=== PATIENT | female | born 1965 | race Caucasian/White ===

== ENCOUNTER 2018-07-14 10:22 | Emergency (ER) | payer OTHER, SELFPAY ==
[2018-07-14 10:29] VITALS: BP 146/94; PULSE 80; RESP 18; TEMP 36.6; O2SAT 95
[2018-07-14 10:36] LABS: Bilirubin Negative (Negative); Blood Moderate (Negative); Clarity Clear; Glucose Negative (Negative); Ketones Trace mg/dL (Negative); Leukocyte Esterase Small (Negative); Nitrite Negative (Negative); Urobilinogen 0.2 EU/dL (Up TO 0.2)
--- NOTE | 2018-07-14 10:40 | ED.GENADUL_ITS ---
Disposition Clinical Impression: Urinary tract infection Disposition: HOME Condition: Stable Instructions: Urinary Tract Infection in Women (ED) Additional Instructions: Return immediately if you begin having high fevers, significant nausea vomiting , or worsening of your symptoms. Otherwise take antibiotic until fully completed. If your symptoms are not resolving by the time antibiotics are complete you should follow-up with your primary care provider for reassessment and further testing. Prescriptions: Nitrofurantoin Macrocrystal [Macrodantin] 100 mg PO BID #9 cap Phenazopyridine [Pyridium] 100 mg PO Q8H PRN #5 tab PRN Reason: Pain Referrals: Jasmina Mccallum NP [Primary Care Provider] - 5 days (If not improving in your symptoms please follow-up with your primary care provider for reassessment.) Medical Decision Making - Lab Data Results reviewed for labs ordered during visit: Yes - Medical Decision Making Patient presenting to the emergency department for burning urination pressure and discomfort along with some mild diarrhea that all started this morning. She does state history of previous urinary tract infections with similar sensations and previous records were reviewed that shows typical contaminant of E. coli and sensitivities were reviewed. Clinically patient has a urinary tract infection but urinalysis was performed to confirm clinical suspicion. Doubt pyelonephritis at this time. Pending results patient given Motrin and Pyridium for discomfort. After review of urinalysis that confirms suspicion of urinary tract infection. With review of previous sensitivities patient is sensitive to Macrobid so she was placed upon Macrobid twice daily for 5 days. Patient also prescribed Pyridium to be used over the next couple days as needed for discomfort otherwise patient to follow-up with primary care provider if not improving by the end of the course of antibiotics. Patient encouraged to return for any new or significant worsening of symptoms which were thoroughly discussed. After discussion of diagnosis and plan of care with patient patient agreed and stated no further needs, questions, or concerns at this time. History of Present Illness - General Chief complaint: Urinary Stated complaint: UTI Time Seen by Provider: 07/14/18 10:26 Source: patient, RN notes reviewed, old records reviewed Mode of arrival: ambulatory Limitations: no limitations - History of Present Illness Initial comments: Patient reports this morning she began having some mild diarrhea along with some burning urination and significant bladder pressure. She does state that she started sertraline a week ago due to a recent in the family but is unsure if this is contributing to anything. Patient denies any fever chills, nausea vomiting, flank pain. Onset/Timin -: hour(s) Location: genitals Radiation: non-radiation Severity scale (1-10): 5 Quality: burning Consistency: constant Improves with: none Worsens with: none Associated Symptoms: denies other symptoms Treatments Prior to Arrival: none - Related Data Calcium Polycarbophil [Fibercon] 625 mg PO DAILY 08/09/14 Eye Restore PO DAILY 08/31/15 Pravastatin Sodium 40 mg PO DAILY #90 tab-cap 10/04/17 Lorazepam 1 mg PO HS PRN #20 tab-cap 07/06/18 Sertraline HCl 50 mg PO DAILY #45 tab-cap 07/06/18 Nitrofurantoin Macrocrystal [Macrodantin] 100 mg PO BID #9 cap 07/14/18 Phenazopyridine [Pyridium] 100 mg PO Q8H PRN #5 tab 07/14/18 Allergies Allergy/AdvReac Type Severity Reaction Status Date / Time No Known Allergies Allergy Unverified 07/14/18 10:38 Review of Systems Constitutional: denies: chills, fever, malaise Respiratory: no symptoms reported Cardiovascular: denies: chest pain Gastrointestinal: diarrhea. denies: abdominal pain, nausea, vomiting Genitourinary: urgency, dysuria, frequency. 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 Absent: respiratory distress, wheezes, rales, rhonchi, stridor - Cardiovascular Cardiovascular Exam: Present: regular rate, normal rhythm, normal heart sounds. Absent: tachycardia, systolic murmur, diastolic murmur - Back Exam Back exam: Absent: CVA tenderness (R), CVA tenderness (L) - Neurological Exam Neurological exam: Present: alert, oriented X3. Absent: altered - Skin Skin exam: Present: warm, dry, normal color. Absent: cyanosis, diaphoretic, pallor, mottled Course Vital Signs - 24 hr 07/14/18 10:29 Temperature 36.6 C Pulse 80 Respiratory 18 Rate Blood Pressure 146/94 Pulse Oximetry 95
[2018-07-14] MEDS: Ibuprofen 600 MG TAB PO (10:42)
[2018-07-14] MEDS: Phenazopyridine 200 MG TAB PO (10:43)
[2018-07-14 10:50] LABS: Bacteria Few HPF (Negative); C & S Indicated? Yes; Casts Negative LPF (Negative); Crystals Negative HPF (Negative); Epithelial Cells Few HPF (Negative); Mucus Negative (Negative); Other Cells Few Renal (Negative); WBC 20-50 HPF (0-5)
[2018-07-14] MEDS: MacroBID 100 MG CAP PO (11:08)
== END 2018-07-14 11:12 | disposition home or self-care (01) ==
PROVIDERS: Emergency Provider Emergency Medicine; PCP Nurse Practitioner Family
DX: N39.0 Urinary tract infection, site not specified (principal); B96.89 Other specified bacterial agents as the cause of diseases classified elsewhere
CPT/HCPCS: 99283; 81003; 81015; 87086

== ENCOUNTER 2018-10-05 08:11 | Outpatient (CLI) | payer OTHER, SELFPAY ==
[2018-10-05 09:33] LABS: Anion Gap 8.2 mmol/L (3-11); BUN 9 mg/dL (7-18); CO2 29.8 mmol/L (21.0-32.0); CREATININE 0.69 mg/dL (0.55-1.02); Calcium 9.2 mg/dL (8.5-10.1); Chloride 103 mmol/L (98-107); Cholesterol 242 mg/dL (50-200); Glucose 99 mg/dL (70-100); HDL Cholesterol 81 mg/dL (40-60); LDL CHOLESTEROL 147 mg/dL (<100); Potassium 4.1 mmol/L (3.5-5.1); Sodium 141 mmol/L (136-145); Triglyceride 98 mg/dL (30-150)
== END 2018-10-05 08:31 ==
PROVIDERS: PCP Nurse Practitioner Family; Visit Provider Nurse Practitioner Family
DX: E78.5 Hyperlipidemia, unspecified (principal); Z13.1 Encounter for screening for diabetes mellitus
CPT/HCPCS: 36415; 80048; 80061; 83721

== ENCOUNTER 2019-12-11 12:25 | Outpatient (REF) | payer OTHER, SELFPAY ==
--- NOTE | 2019-12-11 12:00 | PAPFT_PTH ---
PATIENT: Iram Guerrero LOC: [facility] U#:[id number] AGE/SX: 54/F ROOM: RE12/11/[address]: Eve Méndez MD : 1965 BED: DIS: 12/11/2019 SPEC #: [id number] RECD: 12/12/19 12:56 STATUS: ARMINDA RELilian #: [id number] SIMÓN: 12/11/19 12:[address]: Eve Méndez DEPT: [facility] Cytology RECD BY: Valorie Chung ENTERED: 12/12/19 12:56 SP TYPE: PAPFT OTHR DR: Jasmina Mccallum APRN Tissues: 1 - CX/ENDOCX FOR PAP SMEARS Procedures: PAP THIN PREP/UVM Screening HPV DNA PROBE Comments: [id number]
== END 2019-12-11 12:45 ==
LOC: LBN 12:25
PROVIDERS: PCP Nurse Practitioner Family; Visit Provider Internal Medicine
DX: Z12.4 Encounter for screening for malignant neoplasm of cervix (principal); Z11.51 Encounter for screening for human papillomavirus (HPV)
CPT/HCPCS: 88142; 87624

== ENCOUNTER 2020-02-05 11:54 | Outpatient (CLI) | payer OTHER, SELFPAY ==
[2020-02-05 13:19] LABS: Calculated LDL 134 mg/dL (<100); Cholesterol 243 mg/dL (<200); HDL Cholesterol 83 mg/dL (40-60); Triglyceride 130 mg/dL (<150)
== END 2020-02-05 12:14 ==
PROVIDERS: PCP Internal Medicine; Visit Provider Internal Medicine
DX: E78.00 Pure hypercholesterolemia, unspecified (principal)
CPT/HCPCS: 36415; 80061

== ENCOUNTER 2020-08-07 04:17 | Outpatient (CLI) | payer OTHER, SELFPAY ==
--- NOTE | 2020-08-07 07:15 | DI.MAMMO_ITS ---
EXAM: MAMMO SCREENING CLINICAL HISTORY: screening,Z12.39 TECHNIQUE: Mammograms were interpreted according to the usual protocol including computer analysis w [employer] CAD system, tomosynthesis and C-view imaging. COMPARISON: 2010 through 2015 FINDINGS: The breasts are composed of scattered fibroglandular densities, Breast Density category B. No suspicious masses or suspicious microcalcifications are seen. No skin thickening or abnormal axillary lymph nodes are seen. There has been no significant change from prior exams. IMPRESSION: BI-RADS Category 1, Negative mammogram Yearly screening mammography is recommended. Breast Density - Category B, scattered fibroglandular densities. A negative radiographic report should not delay biopsy if a dominant or clinically suspicious mass is present. Up to ten percent of cancers are not identified on mammography. A negative report may reinforce clinical impression. Adenosis and dense breasts may obscure an underlying neoplasm. False positive reports average 6 to 10%. Patient will receive a letter notifying them of these results.
== END 2020-08-07 04:37 ==
PROVIDERS: PCP Internal Medicine; Visit Provider Internal Medicine
DX: Z12.31 Encounter for screening mammogram for malignant neoplasm of breast (principal); R92.2 Inconclusive mammogram
CPT/HCPCS: 77063; 77067

== ENCOUNTER 2020-12-08 22:56 | Outpatient (REF) | payer OTHER, SELFPAY | END 2020-12-08 23:16 | LOC: LBN 22:56 | PROVIDERS: PCP Internal Medicine; Visit Provider Physician Assistant | DX: N39.0 Urinary tract infection, site not specified (principal) | CPT/HCPCS: 87086 ==

== ENCOUNTER 2021-02-17 04:15 | Outpatient (CLI) | payer OTHER, SELFPAY ==
[2021-02-17 13:14] LABS: Calculated LDL 146 mg/dL (<100); Cholesterol 258 mg/dL (<200); HDL Cholesterol 95 mg/dL (40-60); Triglyceride 86 mg/dL (<150)
== END 2021-02-17 04:16 | disposition home or self-care (01) ==
LOC: LBO 04:15
PROVIDERS: PCP Internal Medicine; Visit Provider Internal Medicine
DX: E78.5 Hyperlipidemia, unspecified (principal)
CPT/HCPCS: 36415; 80061

== ENCOUNTER 2021-03-13 15:55 | Outpatient (REF) | payer OTHER, SELFPAY | END 2021-03-13 15:56 | disposition home or self-care (01) | LOC: LBN 15:55 | PROVIDERS: PCP Internal Medicine; Visit Provider Nurse Practitioner Family | DX: N39.0 Urinary tract infection, site not specified (principal) | CPT/HCPCS: 87077; 87086; 87186 ==

== ENCOUNTER 2021-03-29 08:06 | Emergency (ER) | payer OTHER, SELFPAY ==
[2021-03-29 08:11] VITALS: BP 166/95; PULSE 97; RESP 20; TEMP 37.2; O2SAT 99
[2021-03-29 08:18] LABS: Bilirubin Negative (Negative); Blood Large (Negative); Clarity Sl Cloudy (Clear); Glucose 100 mg/dL (Negative); Ketones Negative (Negative); Leukocyte Esterase Large (Negative); Nitrite Positive (Negative); pH 6.5 (5-8)
[2021-03-29 08:26] LABS: Bacteria Few HPF (Negative); C & S Indicated? Yes; Casts Negative LPF (Negative); Crystals Negative HPF (Negative); Epithelial Cells Few HPF (Negative); Mucus Negative (Negative); RBC 20-50 HPF (0-2); WBC >50 HPF (0-5)
[2021-03-29] MEDS: Cephalexin 500 MG CAP PO (09:06)
--- NOTE | 2021-04-05 07:44 | W.ED.GENAD ---
Discharge Plan Disposition Patient Disposition: HOME Condition: Stable Discharge Details Clinical Impression: Dysuria Primary Care Provider: Eve Méndez ED Provider: Maliha Snell Home Meds and New Rx's Prescriptions: New cephalexin 500 mg capsule 500 mg PO BID Qty: 13 RF: 0 Discontinued phenazopyridine [Pyridium] 100 mg tablet 100 mg PO TID PRN (Reason: pain) Qty: 6 RF: 0 No Action eye restore PO DAILY RF: 0 pravastatin 40 mg tablet 40 mg PO DAILY Qty: 90 RF: 3 sertraline 50 mg tablet 50 mg PO DAILY Qty: 90 RF: 3 trazodone 150 mg tablet 150 mg PO QHS Qty: 90 RF: 2 calcium polycarbophil [FiberCon] 625 MG tablet 625 mg PO DAILY RF: 0 Discharge Instructions Instructions: Cephalexin (By mouth), Phenazopyridine (By mouth), Urinary Tract Infection in Women (ED) Additional Instructions: Please return immediately to the emergency department if you develop any new or worsening symptoms, if your condition does not improve as expected, or if you become otherwise concerned. It is extremely important that you call soon as possible to make an appointment to be seen in follow-up for this visit by your primary care doctor. Referrals: Eve Méndez MD [Primary Care Provider] - Discharge Data Discharge Date/Time-TO BE ENTERED AT DEPARTURE: 03/29/21 09:10 Medical Decision Making Iram Guerrero is a 55-year-old woman with a history of hyperlipidemia who presented to the emergency department with dysuria since yesterday exactly typical of her usual UTIs, last UTI several months ago. On exam patient is very well and nontoxic-appearing. Concern for UTI. Doubt PID, cervicitis. Exam/history not consistent with sepsis, acute emergent intra-abdominal process. Plan for UA. UA consistent with UTI. Plan for antibiotics, Pyridium as patient has only taken 1 dose at this point and reports significant dysuria. I had a lengthy discussion with Patient regarding return to emergency department precautions, home care, and importance of outpatient follow-up. Pt verbalizes understanding of the plan and is amenable. Patient discharged to home with clear plan for outpatient follow-up. All questions were answered. Disposition decision was made weighing the risks and benefits of hospitalization versus outpatient treatment, the risk for further decompensation, and the patient's wishes. Medical Records Medical records reviewed: Yes I reviewed the patient's medical records. Lab Data Lab results reviewed: Yes I reviewed the patient's lab results. Labs: 03/29/21 08:12 Urine - Reflex from Ua Urine Culture - Final Gram Positive Beth,Mixed Laboratory Tests Range/Units 03/29/21 08:12 Urine Color (Yellow) Yellow Urine Clarity (Clear) Sl cloudy Urine pH (5-8) 6.5 Ur Specific [place] (1.005-1.025) 1.010 Urine Protein (Negative) mg/dL 100 H Urine Ketones (Negative) mg/dL Negative Urine Blood (Negative) Large H Urine Nitrite (Negative) Positive H Urine Bilirubin (Negative) Negative Urine Urobilinogen (Up TO 0.2) EU/dL 1.0 H Ur Leukocyte Esterase (Negative) Large H Urine RBC (0-2) HPF 20-50 H Urine WBC (0-5) HPF >50 H Ur Epithelial Cells (Negative) HPF Few Urine Crystals (Negative) HPF Negative Urine Bacteria (Negative) HPF Few Urine Casts (Negative) LPF Negative Urine Mucus (Negative) Negative Ur Culture Indicated? Yes Urine Glucose (Negative) mg/dL 100 HPI General Mode of arrival: ambulatory. Date/Time Provider Initiated Documentation: 03/29/21 09:00. Limitations to Documentation: no limitations. Information obtained by: patient, RN notes reviewed and old records reviewed. HPI Narrative: Iram Guerrero is a 55-year-old woman with history of hyperlipidemia presenting to the emergency department with dysuria. Patient reports that yesterday she developed burning pain with urination and dull suprapubic pain worse with urination. Patient reports that she took 1 dose Azo without much relief. Patient states that she gets urinary tract infection frequently, at least once per year, and states that all of her symptoms are exactly typical of her usual UTIs. Patient reports that she has no other symptoms, no atypical features. She denies new vaginal discharge, fevers, any other pain, vomiting, diarrhea, constipation, numbness, weakness, rash. Patient states that she feels otherwise well and in her usual state of health. Has been eating and drinking as usual. Patient states that she is sexually active with her , they has been monogamous for over 30 years. Related Data Home Medications Medication Instructions Recorded Confirmed calcium polycarbophil [FiberCon] 625 mg PO DAILY 08/09/14 03/29/21 Eye Restore PO DAILY 08/31/15 12/08/20 pravastatin 40 mg tablet 40 mg PO DAILY #90 tab-cap 11/11/20 12/08/20 sertraline 50 mg tablet 50 mg PO DAILY #90 tab-cap 11/11/20 03/29/21 trazodone 150 mg tablet 150 mg PO QHS #90 tab 02/02/21 03/29/21 cephalexin 500 mg PO BID #13 cap 03/29/21 Previous Rx's Medication Instructions Recorded pravastatin 40 mg tablet 40 mg PO DAILY #90 tab-cap 11/11/20 sertraline 50 mg tablet 50 mg PO DAILY #90 tab-cap 11/11/20 trazodone 150 mg tablet 150 mg PO QHS #90 tab 02/02/21 cephalexin 500 mg PO BID #13 cap 03/29/21 Allergies Allergy/AdvReac Type Severity Reaction Status Date / Time No Known Allergies Allergy Verified 03/29/21 08:17 General Stated Complaint: Urinary ALFONZO: 4 Review of Systems Narrative: Constitutional: denies fevers Eyes: denies eye pain ENT: denies ear pain, dental pain, sore throat Cardiovascular: denies chest pain Respiratory: denies SOB, cough GI: denies abdominal pain, vomiting, diarrhea : denies flank pain, vaginal discharge, reports dysuria, suprapubic pain MSK: denies back pain, neck pain, arthralgias, myalgias Skin: denies rash Neuro: denies headaches, numbness, weakness [facility] Medical History Colonic polyp Since age 28 07/2015 colonoscopy w/ polypectomy- sigmoid, rectal, and hepatic flexture Diverticulosis (08/16/15) Dyslipidemia (08/31/15) Endometriosis Grief at loss of child (07/18/18) 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: No Working smoke detector in home: Yes Fire extinguisher in home: Yes Carbon monox detector in home: Yes Do you feel safe at home: Yes Do you feel safe in your relationship?: Yes Exam Narrative Exam Narrative: Constitutional: well and [id number], pleasant, conversing normally HENT: head atraumatic/normocephalic/normal inspection, mucous membranes moist Eyes: conjunctiva normal, sclera normal, pupils 3mm b/l Neck: no stridor, normal ROM, trachea midline Resp: normal work of breathing, speaking in full sentences Cardio: normal rate, normal rhythm GI: abdomen soft, mild suprapubic tenderness to palpation without other abdominal tenderness, no rebound, no guarding non-distended Skin: warm, dry, normal color, no rash Neuro: alert, not altered, grossly non-focal, normal tone Ext: Moving all extremities equally Psych: normal mood, normal affect, normal behavior Course Vital Signs Vital signs: Vital Signs Temperature 37.2 C 03/29/21 08:11 Pulse 97 H 03/29/21 08:11 Respiratory Rate 20 03/29/21 08:11 Blood Pressure 166/95 H 03/29/21 08:11 Pulse Oximetry 99 03/29/21 08:11 Temperature 37.2 C 03/29/21 08:11 Temperature Source Skin 03/29/21 08:11 Pulse 97 H 03/29/21 08:11 Respiratory Rate 20 03/29/21 08:11 Respiratory Effort Non-Labored 03/29/21 08:17 Blood Pressure 166/95 H 03/29/21 08:11 Blood Pressure Position Sitting 03/29/21 08:11 Pulse Oximetry 99 03/29/21 08:11 Oxygen Delivery Method Room Air 03/29/21 08:11 Oxygen Flow Rate 0 03/29/21 08:11 Pain Level 10 03/29/21 08:11 Lab/Test Results Lab/Test Results: 03/29/21 08:12 Urine - Reflex from Ua Urine Culture - Final Gram Positive Beth,Mixed Laboratory Tests Range/Units 03/29/21 08:12 Urine Color (Yellow) Yellow Urine Clarity (Clear) Sl cloudy Urine pH (5-8) 6.5 Ur Specific [place] (1.005-1.025) 1.010 Urine Protein (Negative) mg/dL 100 H Urine Ketones (Negative) mg/dL Negative Urine Blood (Negative) Large H Urine Nitrite (Negative) Positive H Urine Bilirubin (Negative) Negative Urine Urobilinogen (Up TO 0.2) EU/dL 1.0 H Ur Leukocyte Esterase (Negative) Large H Urine RBC (0-2) HPF 20-50 H Urine WBC (0-5) HPF >50 H Ur Epithelial Cells (Negative) HPF Few Urine Crystals (Negative) HPF Negative Urine Bacteria (Negative) HPF Few Urine Casts (Negative) LPF Negative Urine Mucus (Negative) Negative Ur Culture Indicated? Yes Urine Glucose (Negative) mg/dL 100
== END 2021-03-29 09:10 | disposition home or self-care (01) ==
PROVIDERS: Emergency Provider Student in an Organized Health Care Education/Training Program; PCP Internal Medicine
DX: N39.0 Urinary tract infection, site not specified (principal); Z87.440 Personal history of urinary (tract) infections
CPT/HCPCS: 99283; 81003; 81015; 87086

== ENCOUNTER 2021-07-20 17:37 | Outpatient (REF) | payer OTHER, SELFPAY | END 2021-07-20 17:38 | disposition home or self-care (01) | LOC: LBN 17:37 | PROVIDERS: PCP Internal Medicine; Visit Provider Physician Assistant | DX: N39.0 Urinary tract infection, site not specified (principal) | CPT/HCPCS: 87086 ==

== ENCOUNTER 2022-04-06 02:05 | Outpatient (CLI) | payer OTHER, SELFPAY ==
[2022-04-06 15:50] LABS: Calculated LDL 223 mg/dL (<100); Cholesterol 335 mg/dL (<200); HDL Cholesterol 87 mg/dL (40-60); Triglyceride 129 mg/dL (<150)
== END 2022-04-06 02:06 | disposition home or self-care (01) ==
LOC: LBO 02:05
PROVIDERS: PCP Internal Medicine; Visit Provider Internal Medicine
DX: E78.00 Pure hypercholesterolemia, unspecified (principal)
CPT/HCPCS: 36415; 80061

== ENCOUNTER → 2022-06-14 00:46 | Outpatient (CLI) | payer OTHER, SELFPAY ==
--- NOTE | 2022-06-14 07:30 | DI.MAMMO_ITS ---
Exam(s) MAMMO SCREENING EXAM: MAMMO SCREENING CLINICAL HISTORY: screening, Z12.39. TECHNIQUE: Bilateral full field digital CC and MLO mammographic images were obtained with 3D tomosyn thesis and utilizing computer aided detection (CAD). COMPARISON: Prior mammograms were reviewed, the most recent being July 2020. FINDINGS: There has been no significant change in the appearance and distribution of the fibroglandular tissue. There are no new spiculated masses nor malignant appearing microcalcification groups. There is no significant architectural distortion nor skin thickening-retraction. IMPRESSION: No radiographic evidence of malignancy. BI-RADS Category 1 - Negative Breast Density - Category B - Scattered areas of fibroglandular density Breast density Category C or D implies that the patient has dense breast tissue. Dense breast tissue can make it harder to find cancer on a mammogram. Dense breast tissue is also associated with an incr eased risk of breast cancer. This information about the result of the mammogram report was provided to the patient to raise their awareness. Use this report when you speak with the patient about their risks for breast cancer, which includes their family history. At that time, you may recommend additional screening tests (Ultrasoun d or MRI) as these tests may add significant information. A negative radiographic report should not delay biopsy if a dominant or clinically suspicious mass is present. Up to ten percent of cancers are not identified on mammography. A negative report may reinforce clinical impression. Adenosis and dense breasts may obscure an underlying neoplasm. False positive reports average 6 to 10%. Patient will receive a letter notifying them of these results.
== END ==
PROVIDERS: PCP Internal Medicine; Visit Provider Internal Medicine
DX: Z12.31 Encounter for screening mammogram for malignant neoplasm of breast (principal)
CPT/HCPCS: 77063; 77067

== ENCOUNTER 2022-10-13 03:23 | Outpatient (CLI) | payer OTHER, SELFPAY ==
[2022-10-13 13:02] LABS: Calculated LDL 114 mg/dL (<100); Cholesterol 220 mg/dL (<200); HDL Cholesterol 95 mg/dL (40-60); Triglyceride 57 mg/dL (<150)
== END 2022-10-13 03:24 | disposition home or self-care (01) ==
LOC: LBO 03:23
PROVIDERS: PCP Internal Medicine; Visit Provider Internal Medicine
DX: E78.00 Pure hypercholesterolemia, unspecified (principal)
CPT/HCPCS: 36415; 80061

== ENCOUNTER 2024-04-18 13:40 | Outpatient (CLI) | payer OTHER, SELFPAY ==
[2024-04-18 15:18] LABS: ALT 38 U/L (14-59); AST 22 U/L (15-37); Albumin 4.4 g/dL (3.4-5.0); Alkaline Phosphatase 64 U/L (46-116); Anion Gap 7.7 mmol/L (3-11); BUN 8 mg/dL (7-18); Bilirubin, Total 1.2 mg/dL (0.2-1.0); CO2 24.3 mmol/L (21.0-32.0); CREATININE 0.9 mg/dL (0.55-1.02); Calcium 9.1 mg/dL (8.5-10.1); Calculated LDL 86 mg/dL (<100); Chloride 104 mmol/L (98-107); Cholesterol 206 mg/dL (<200); Glucose 95 mg/dL (74-106); HDL Cholesterol 108 mg/dL (40-60); Potassium 3.4 mmol/L (3.5-5.1); Sodium 136 mmol/L (136-145); Total Protein 7.4 g/dL (6.4-8.2); Triglyceride 61 mg/dL (<150)
== END 2024-04-18 13:41 | disposition home or self-care (01) ==
LOC: LBO 13:40
PROVIDERS: PCP Nurse Practitioner Adult Health; Visit Provider Nurse Practitioner Adult Health
DX: E78.5 Hyperlipidemia, unspecified (principal); G47.00 Insomnia, unspecified; Z51.81 Encounter for therapeutic drug level monitoring
CPT/HCPCS: 36415; 80053; 80061

== ENCOUNTER 2024-07-16 01:20 | Outpatient (CLI) | payer OTHER, SELFPAY ==
--- NOTE | 2024-07-16 07:15 | DI.MAMMO_ITS ---
Exam(s) MAMMO SCREENING EXAM: MAMMO SCREENING CLINICAL HISTORY: screening,Z12.39 TECHNIQUE: Mammograms were interpreted according to the usual protocol including computer analysis w [employer] CAD system, tomosynthesis and C-view imaging. COMPARISON: 2015 through 2021 FINDINGS: The breasts are composed of scattered fibroglandular densities, Breast Density category B. No suspicious masses or suspicious microcalcifications are seen. No skin thickening or abnormal axillary lymph nodes are seen. There has been no significant change from prior exams. IMPRESSION: BI-RADS Category 1, Negative mammogram Yearly screening mammography is recommended. Breast Density - Category B, scattered fibroglandular densities. A negative radiographic report should not delay biopsy if a dominant or clinically suspicious mass is present. Up to ten percent of cancers are not identified on mammography. A negative report may reinforce clinical impression. Adenosis and dense breasts may obscure an underlying neoplasm. False positive reports average 6 to 10%. Patient will receive a letter notifying them of these results.
== END 2024-07-16 01:40 ==
LOC: DI 01:20
PROVIDERS: PCP Nurse Practitioner Adult Health; Visit Provider Nurse Practitioner Adult Health
DX: Z12.31 Encounter for screening mammogram for malignant neoplasm of breast (principal)
CPT/HCPCS: 77063; 77067

== ENCOUNTER 2025-02-10 10:09 | Outpatient (REF) | payer OTHER, SELFPAY ==
--- NOTE | 2025-02-10 09:00 | PAPFT_PTH ---
PATIENT: Iram Guerrero LOC: [facility] U#:[id number] AGE/SX: 59/F ROOM: RE02/10/[address]: Tamara Little APRN : 1965 BED: DIS: 02/10/2025 SPEC #: [id number] RECD: 02/10/25 16:49 STATUS: ARMINDA REQ #: [id number] SIMÓN: 02/10/25 09:[address]: Tamara Little DEPT: [facility] Cytology RECD BY: Valorie Chung Tissues: 1 - CX/ENDOCX FOR PAP SMEARS Procedures: PAP THIN PREP/UVM Screening HPV DNA PROBE Comments: [id number] (HPV 16 & 18/45)
== END 2025-02-10 10:10 | disposition home or self-care (01) ==
LOC: LBN 10:09
PROVIDERS: PCP Nurse Practitioner Adult Health; Visit Provider Nurse Practitioner Adult Health
DX: Z11.51 Encounter for screening for human papillomavirus (HPV) (principal); Z01.419 Encounter for gynecological examination (general) (routine) without abnormal findings
CPT/HCPCS: 88142; 87624

== ENCOUNTER 2025-07-21 03:25 | Outpatient (CLI) | payer OTHER, SELFPAY ==
--- NOTE | 2025-07-21 11:50 | DI.MAMMO_ITS ---
Exam(s) MAMMO SCREENING EXAM: MAMMO SCREENING CLINICAL HISTORY: screening Z12.39 TECHNIQUE: Bilateral full field digital CC and MLO mammographic images were obtained with 3D tomosynthesis and utilizing computer aided detection (CAD). COMPARISON: Comparison is made with prior examinations. FINDINGS: Masses/Architectural Distortion: No suspicious masses or areas of architectural distortion are present. Microcalcifications: No suspicious pleomorphic-type are seen. Skin Thickening/Nipple Retraction: None. IMPRESSION: 1. No significant interval change with no specific features of malignancy noted. 2. Unless there is more urgent need, screening mammography is recommended, as per [place] [employer] guidelines. BI-RADS Category 1 - Negative Breast Density - Category B - There are scattered areas of fibroglandular density. Breast density Category C or D implies that the patient has dense breast tissue. Dense breast tissue can make it harder to find cancer on a mammogram. Dense breast tissue is also associated with an increased risk of breast cancer. This information about the result of the mammogram report was provided to the patient to raise their awareness. Use this report when you speak with the patient about their risks for breast cancer, which includes their family history. At that time, you may recommend additional screening tests (Ultrasound or MRI) as these tests may add significant information. A negative radiographic report should not delay biopsy if a dominant or clinically suspicious mass is present. Up to ten percent of cancers are not identified on mammography. A negative report may reinforce clinical impression. Adenosis and dense breasts may obscure an underlying neoplasm. False positive reports average 6 to 10%. Patient will receive a letter notifying them of these results.
== END 2025-07-21 03:45 ==
PROVIDERS: PCP Nurse Practitioner Adult Health; Visit Provider Nurse Practitioner Adult Health
DX: Z12.31 Encounter for screening mammogram for malignant neoplasm of breast (principal); Z12.11 Encounter for screening for malignant neoplasm of colon; D12.6 Benign neoplasm of colon, unspecified; R92.323 Mammographic fibroglandular density, bilateral breasts
CPT/HCPCS: 77063; 77067